=== PATIENT | female | born 1970 | race African-American/Black ===

== ENCOUNTER 2016-05-23 17:33 | Inpatient (IN) | payer MEDICARE, OTHER ==
[~2016-05-23] VITALS: Ht 160 cm; Wt 84.7 kg
[~2016-05-23 17:33] MED LIST: LAMO25 PO; RISP1TAB54 PO
[2016-05-23 18:02] VITALS: BP 128/86; PULSE 93; RESP 20; TEMP 97.7; O2SAT 100
[2016-05-23 18:29] LABS: AMPHETAMINE, URINE NEG (NEG); AUTOMATED NEUTROPHIL # 3.7 TH/MM3 (1.8-7.7); BARBITURATES, URINE NEG (NEG); BASOPHIL % 0.6 % (0.0-2.0); COCAINE, URINE NEG (NEG); EOSINOPHIL # 0.5 TH/MM3 (0-0.4); EOSINOPHIL % 6.2 % (0.0-4.0); HEMATOCRIT 40.9 % (35.0-46.0); HEMO FLAGS DIFF FINAL; LYMPH % 35.1 % (9.0-44.0); LYMPHOCYTE # 2.6 TH/MM3 (1.0-4.8); MEAN CELL VOLUME 90.1 FL (80.0-100.0); MEAN CORPUSCULAR HGB CONC 34.4 % (32.0-36.0); MONO % 7.6 % (0.0-8.0); NEUT % 50.5 % (16.0-70.0); PLATELET COUNT 321 TH/MM3 (150-450); RED BLOOD COUNT 4.54 MIL/MM3 (4.00-5.30); RED CELL DISTRIBUTION WIDTH 13.6 % (11.6-17.2); WHITE BLOOD COUNT 7.3 TH/MM3 (4.0-11.0)
[2016-05-23 18:40] LABS: BLOOD, URINE NEG (NEG); COMMENT (UR) CULT NOT INDICATED; CULTURE IF INDICATED CULT NOT INDICATED; GLUCOSE,URINE NEG (NEG); KETONE, URINE NEG (NEG); MUCUS URINE FEW /lpf (OCC); NITRITE,URINE NEG (NEG); PH, URINE 6.5 (5.0-8.5); SQUAMOUS EPITHELIAL CELL URINE <1 /hpf (0-5); URINE COLOR LIGHT-YELLOW (YELLW/STRAW)
--- NOTE | 2016-05-23 18:43 | PD ---
HPI Chief Complaint: Psychiatric Symptoms Time Seen by Provider: 18:42 Travel History International Travel<30 days: No Contact w/Intl Traveler<30days: No Traveled to known affect area: No History of Present Illness HPI Patient comes in under [place] act by police for making suicidal statements. Patient denies any suicidal or homicidal ideations. Patient reports she is recently had surgery on her left eye and is supposed to be taking eyedrops but is uncertain what the medication is. Patient denies any other medical concerns. Denies any chest pain, shortness of breath, fevers, and abdominal pain, nausea, or vomiting. PFSH Past Medical History Anxiety: Yes Depression: Yes Cancer: No High Cholesterol: No Chest Pain: No Congestive Heart Failure: No Cerebrovascular Accident: No Endocrine: No Genitourinary: No Immune Disorder: No Musculoskeletal: No Neurologic: Yes Psychiatric: Yes (SCHIZOAFFECTIVE) Reproductive: No Respiratory: No Migraines: No ?: Not Social History Alcohol Use: No Tobacco Use: No Substance Use: No Allergies-Medications (Allergen,Severity, Reaction): Coded Allergies: No Known Allergies (Unverified , 02/27/12) Reported Meds & Prescriptions Reported Meds & Active Scripts Active Reported Risperdal M-Tab (Risperidone) 1 Mg Tab 1 Mg PO TID Lamictal (Lamotrigine) 25 Mg Tab 75 Mg PO Q12 Review of Systems Except as stated in HPI: all other systems reviewed are Neg Physical Exam Narrative GENERAL: Well-developed, overly nourished, in no acute distress, and non-ill appearing. SKIN: Warm and dry. HEAD: Atraumatic. Normocephalic. EYES: Pupils equal and round. EOMI. No scleral icterus. No injection or drainage. ENT: No nasal bleeding or discharge. Mucous membranes pink and moist. NECK: Trachea midline. Supple. No nuclear rigidity. CARDIOVASCULAR: Regular rate and rhythm. No murmur appreciated. RESPIRATORY: No accessory muscle use. No respiratory distress. Clear to auscultation. Breath sounds equal bilaterally. MUSCULOSKELETAL: No obvious deformities. No clubbing. No cyanosis. No edema. Full range of motion. NEUROLOGICAL: Awake and alert. No obvious cranial nerve deficits. Motor grossly within normal limits. Normal speech. PSYCHIATRIC: Appropriate mood and affect. Data Data Last Documented VS Vital Signs Date Time Temp Pulse Resp B/P Pulse Ox O2 Delivery O2 Flow Rate FiO2 2/8/17 18:56 96.5 100 20 130/85 96 Room Air Orders Complete Blood Count With Diff (05/23/16 18:04) Comprehensive Metabolic Panel (05/23/16 18:04) Psych Screen (05/23/16 18:04) Drug Screen, Random Urine (05/23/16 18:04) Alcohol (Ethanol) (05/23/16 18:04) Urinalysis - C+S If Indicated (05/23/16 18:07) Potassium Chloride (Kcl) (05/23/16 19:00) Labs Laboratory Tests Test 05/23/16 18:00 White Blood Count 7.3 TH/MM3 Red Blood Count 4.54 MIL/MM3 Hemoglobin 14.1 GM/DL Hematocrit 40.9 % Mean Corpuscular Volume 90.1 FL Mean Corpuscular Hemoglobin 31.0 PG Mean Corpuscular Hemoglobin 34.4 % Concent Red Cell Distribution Width 13.6 % Platelet Count 321 TH/MM3 Mean Platelet Volume 7.9 FL Neutrophils (%) (Auto) 50.5 % Lymphocytes (%) (Auto) 35.1 % Monocytes (%) (Auto) 7.6 % Eosinophils (%) (Auto) 6.2 % Basophils (%) (Auto) 0.6 % Neutrophils # (Auto) 3.7 TH/MM3 Lymphocytes # (Auto) 2.6 TH/MM3 Monocytes # (Auto) 0.6 TH/MM3 Eosinophils # (Auto) 0.5 TH/MM3 Basophils # (Auto) 0.0 TH/MM3 CBC Comment DIFF FINAL Differential Comment Urine Color LIGHT-YELLOW Urine Turbidity CLEAR Urine pH 6.5 Urine Specific [place] 1.007 Urine Protein NEG mg/dL Urine Glucose (UA) NEG mg/dL Urine Ketones NEG mg/dL Urine Occult Blood NEG Urine Nitrite NEG Urine Bilirubin NEG Urine Urobilinogen LESS THAN 2.0 MG/DL Urine Leukocyte Esterase NEG Urine RBC 2 /hpf Urine WBC 1 /hpf Urine Squamous Epithelial <1 /hpf Cells Urine Mucus FEW /lpf Microscopic Urinalysis Comment CULT NOT INDICATED Sodium Level 136 MEQ/L Potassium Level 3.2 MEQ/L Chloride Level 102 MEQ/L Carbon Dioxide Level 23.0 MEQ/L Anion Gap 11 MEQ/L Blood Urea Nitrogen 6 MG/DL Creatinine 0.90 MG/DL Estimat Glomerular Filtration 82 ML/MIN Rate Random Glucose 104 MG/DL Calcium Level 9.2 MG/DL Total Bilirubin 0.3 MG/DL Aspartate Amino Transf 17 U/L (AST/SGOT) Alanine Aminotransferase 20 U/L (ALT/SGPT) Alkaline Phosphatase 84 U/L Total Protein 9.2 GM/DL Albumin 3.6 GM/DL Urine Opiates Screen NEG Urine Barbiturates Screen NEG Urine Amphetamines Screen NEG Urine Benzodiazepines Screen NEG Urine Cocaine Screen NEG Urine Cannabinoids Screen NEG Ethyl Alcohol Level LESS THAN 3 MG/DL MDM Medical Decision Making Medical Screen Exam Complete: Yes Emergency Medical Condition: Yes Differential Diagnosis Homicidal, suicidal, schizophrenic, bipolar, drug-induced mood disorder, alcohol induced mood disorder, Narrative Course Patient was seen and examined. Labs were obtained and reviewed. Potassium was replaced orally. Patient medically cleared for further treatment and evaluation by psych. Final disposition per psych. Diagnosis Primary Impression: Hypokalemia Condition: Stable Juan Antonio Torres May 23, 2016 18:43
[2016-05-23 18:50] LABS: ALT (GPT) 20 U/L (10-53); ANION GAP 11 MEQ/L (5-15); AST (GOT) 17 U/L (15-37); BLOOD UREA NITROGEN 6 MG/DL (7-18); CHLORIDE 102 MEQ/L (98-107); GLOMERULAR FILTRATION RATE 82 ML/MIN (>89); POTASSIUM 3.2 MEQ/L (3.5-5.1); SODIUM (NA) 136 MEQ/L (136-145)
[2016-05-23 18:53] LABS: ALKALINE PHOSPHATASE 84 U/L (45-117); TOTAL BILIRUBIN ADULT 0.3 MG/DL (0.2-1.0)
[2016-05-23 18:56] VITALS: BP 130/85; PULSE 100; RESP 20; TEMP 96.5; O2SAT 96
[2016-05-23] MEDS ORDERED: POTASSIUM CHLORIDE 20 MEQ CONTROLLED RELEASE TAB PO ONE (19:00)
[2016-05-23] MEDS: LORazepam 1 MG TAB PO PRN (19:30)
[2016-05-23] MEDS ORDERED: ACETAMINOPHEN 325 MG TAB PO PRN (19:45)
[2016-05-23] MEDS ORDERED: LORazepam 2 MG/ML VIAL IM PRN ×2 (19:45)
[2016-05-23] MEDS ORDERED: ALUMINUM/MAGNESIUM/SIMETH 30 ML CUP PO PRN (19:45)
[2016-05-23] MEDS ORDERED: MAGNESIUM HYDROXIDE SUSP 30 ML CUP PO PRN (19:45)
[2016-05-23] MEDS ORDERED: LATA0.002 EACH EYE (21:49)
[2016-05-23] MEDS ORDERED: LAMO100 PO ×2 (21:49)
[2016-05-23] MEDS ORDERED: HYDR25TA5 PO (21:49)
[2016-05-23] MEDS ORDERED: RISP0.5T20 PO (21:49)
[2016-05-23] MEDS ORDERED: AMLO5TAB2 PO (21:49)
[2016-05-23] MEDS ORDERED: PRED1SUS LEFT EYE (21:49)
[2016-05-23] MEDS ORDERED: BIRTH CONTROL PILL PO (21:49)
[2016-05-23 22:14] VITALS: BP 124/85; PULSE 90; RESP 18; TEMP 98; O2SAT 100
[2016-05-24 05:29] VITALS: BP 123/69; PULSE 75; RESP 16; TEMP 98
[2016-05-24 09:14] LABS: ANION GAP 8 MEQ/L (5-15); BLOOD UREA NITROGEN 8 MG/DL (7-18); CHLORIDE 100 MEQ/L (98-107); GLOMERULAR FILTRATION RATE 73 ML/MIN (>89); HDL CHOLESTEROL 76.5 MG/DL (40.0-60.0); LDL CHOLESTEROL 90 MG/DL (0-99); POTASSIUM 3.6 MEQ/L (3.5-5.1); SODIUM (NA) 136 MEQ/L (136-145)
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
[2016-05-24 12:12] LABS: HEMOGLOBIN A1b 0.9 %; HEMOGLOBIN Ao 85.4 %; HEMOGLOBIN LA1C 1.9 %; HEMOGLOBIN P3 3.7 %
[2016-05-24] MEDS: CITALOPRAM HYDROBROMIDE 40 MG TAB PO SCH (12:48)
[2016-05-24] MEDS: QUEtiapine FUMARATE 100 MG TAB PO SCH ×2 (12:48→20:29)
[2016-05-24 18:00] VITALS: BP 133/79; PULSE 74; RESP 18; TEMP 98.6; O2SAT 100
[2016-05-25 06:13] VITALS: BP 115/57; PULSE 81; RESP 18; TEMP 98.5; O2SAT 98
[2016-05-25] MEDS: QUEtiapine FUMARATE 100 MG TAB PO SCH ×2 (09:16→20:08)
[2016-05-25] MEDS: CITALOPRAM HYDROBROMIDE 40 MG TAB PO SCH (09:16)
--- NOTE | 2016-05-25 11:01 | HHI.PYPN ---
Subjective Remarks Patient was seen and discussed with the staff editor. Patient claimed that she still has been feeling depressed and missing her mother. She still wants to be with her mom. She occasionally cries. She denied any active auditory or visual hallucinations. She slept okay last night. Denied any side effects from the medication. She is cooperative and participating in all the treatment. Continue with the same treatment Review of Systems Except as stated in HPI: all other systems reviewed are Neg Psychiatric: COMPLAINS OF: Depression Objective Alert: Yes [place]: Person, Place, Situation Mood: Anxious, Depressed Affect: Labile Memory Intact: Recent (mildly impaired) Hallucinations: Other (denied any auditory or visual hallucinations) Delusions: No Delusion Type: Other (no obvious delusional beliefs reported at this time) Suicidal: Ideation (passive suicidal ideation but feels safe in the hospital and promises not to hurt herself) Homicidal: Ideation (denies) Insight/Judgement Limited Vitals/IOs Vital Signs Date Time Temp Pulse Resp B/P Pulse Ox O2 Delivery O2 Flow Rate FiO2 05/25/16 06:13 98.5 81 18 115/57 98 05/23/16 18:56 Room Air Intake and Output 05/24/16 05/24/16 05/25/16 08:00 16:00 00:00 Intake Total 360 ml Balance 360 ml Assessment & Plan Problem List: (1) schizoaffective disorder depressed Assessment & Plan Estimated LOS: days Justification for Cont. Inpt. Monitoring other medication to stabilize her mood Request HC Surrog/Guard Advoc?: No Everardo Nuñez MD May 25, 2016 11:01
[2016-05-25] MEDS: LORazepam 0.5 MG TAB PO PRN (12:53)
[2016-05-25 17:33] VITALS: BP 100/65; PULSE 86; RESP 18; TEMP 98.7; O2SAT 97
[2016-05-26 05:46] VITALS: BP 97/67; PULSE 70; RESP 18; TEMP 98.2; O2SAT 97
[2016-05-26] MEDS: QUEtiapine FUMARATE 100 MG TAB PO SCH ×2 (08:34→20:43)
[2016-05-26] MEDS: CITALOPRAM HYDROBROMIDE 40 MG TAB PO SCH (08:34)
--- NOTE | 2016-05-26 15:06 | HHI.PYPN ---
Subjective Remarks Patient was seen and case discussed with nursing. Patient is pleasant and cooperative with exam. There is mild intellectual delay as evidenced during the interview. Per nursing she was napping this morning and behaving well on the unit. Patient is bright and cheerful during the interview; however, she admits to suicidal ideations last night with thoughts of overdosing on medication. Denies auditory visual hallucinations Objective Alert: Yes [place]: Person, Place, Situation Mood: Anxious, Depressed Affect: Labile Memory Intact: Recent (mildly impaired) Hallucinations: Other (denied any auditory or visual hallucinations) Delusions: No Delusion Type: Other (no obvious delusional beliefs reported at this time) Suicidal: Ideation (passive suicidal ideation but feels safe in the hospital and promises not to hurt herself) Homicidal: Ideation (denies) Insight/Judgement Poor Vitals/IOs Vital Signs Date Time Temp Pulse Resp B/P Pulse Ox O2 Delivery O2 Flow Rate FiO2 05/26/16 05:46 98.2 70 18 97/67 97 05/23/16 18:56 Room Air Assessment & Plan Problem List: (1) schizoaffective disorder depressed Assessment & Plan Continue current treatment plan Justification for Cont. Inpt. Patient will decompensate in a less restrictive setting Request HC Surrog/Guard Advoc?: No Wolfgang Saleh DO May 26, 2016 15:06
[2016-05-26 18:44] VITALS: BP 129/72; PULSE 76; RESP 18; TEMP 98.3; O2SAT 100
[2016-05-27 04:28] VITALS: BP 100/50; PULSE 65; RESP 18; TEMP 98.9; O2SAT 99
[2016-05-27] MEDS: QUEtiapine FUMARATE 100 MG TAB PO SCH ×2 (08:21→20:32)
[2016-05-27] MEDS: CITALOPRAM HYDROBROMIDE 40 MG TAB PO SCH (08:21)
--- NOTE | 2016-05-27 12:15 | HHI.PYPN ---
Subjective Remarks Patient was seen and case discussed with nursing. Patient suicidal ideations have resolved. Says she had a productive conversation with her cousin which cheered her up. Says was depressed last night but "I got over it." Bright and cheerful during the interview. Compliant with medications Objective Alert: Yes [place]: Person, Place, Situation Mood: Anxious, Depressed Affect: Labile Memory Intact: Recent (mildly impaired) Hallucinations: Other (denied any auditory or visual hallucinations) Delusions: No Delusion Type: Other (no obvious delusional beliefs reported at this time) Suicidal: Ideation (denies) Homicidal: Ideation (denies) Insight/Judgement Poor Vitals/IOs Vital Signs Date Time Temp Pulse Resp B/P Pulse Ox O2 Delivery O2 Flow Rate FiO2 05/27/16 04:28 98.9 65 18 100/50 99 05/23/16 18:56 Room Air Assessment & Plan Problem List: (1) schizoaffective disorder depressed Assessment & Plan Continue current treatment plan Justification for Cont. Inpt. Patient will decompensate in a less restrictive setting Request HC Surrog/Guard Advoc?: No Wolfgang Saleh DO May 27, 2016 12:15
[2016-05-27 19:03] VITALS: BP 128/80; PULSE 70; RESP 18; TEMP 98.2; O2SAT 99
[2016-05-28 05:16] VITALS: BP 98/54; PULSE 69; RESP 18; TEMP 98.3; O2SAT 99
[2016-05-28] MEDS: QUEtiapine FUMARATE 100 MG TAB PO SCH (09:04)
[2016-05-28] MEDS: CITALOPRAM HYDROBROMIDE 40 MG TAB PO SCH (09:04)
--- NOTE | 2016-05-28 15:52 | HHI.PYPN ---
Subjective Remarks Patient seen on unit with nurse Mateo, and medical student Vero, patient calm pleasant, denies auditory or visual hallucinations denies suicidality but she does acknowledge and labile explosive temper she says is gotten treatment some problems before in her placements with her family in the past. She denies any prodromal type behaviors with this. For now we will condense the Seroquel to 200 mg at bedtime and Tegretol 100 mg chewable twice a day to dosage at today and check a level on 05/31 Review of Systems Except as stated in HPI: all other systems reviewed are Neg Objective Alert: Yes [place]: Person, Place, Situation Mood: Anxious, Depressed Affect: Labile Memory Intact: Recent (mildly impaired) Hallucinations: Other (denied any auditory or visual hallucinations) Delusions: No Delusion Type: Other (no obvious delusional beliefs reported at this time) Suicidal: Ideation (denies) Homicidal: Ideation (denies) Insight/Judgement Poor Vitals/IOs Vital Signs Date Time Temp Pulse Resp B/P Pulse Ox O2 Delivery O2 Flow Rate FiO2 05/28/16 05:16 98.3 69 18 98/54 99 Assessment & Plan Problem List: (1) Schizoaffective disorder, depressive type ICD Code: F25.1 Assessment & Plan Estimated LOS: days distant patient remains somewhat sad though denying any auditory or visual hallucinations. She has a contraband temper that has made things difficult for her [place] placements. Please see medication adjustments above Justification for Cont. Inpt. At this time patient was significantly decompensated placed in a lower level of care Discharge Planning To be determined Request HC Surrog/Guard Advoc?: No Adis Nunez MD May 28, 2016 15:52
[2016-05-28 18:44] VITALS: BP 121/77; PULSE 77; RESP 18; TEMP 98.5; O2SAT 98
[2016-05-28] MEDS: QUEtiapine FUMARATE 200 MG TAB PO SCH (20:09)
[2016-05-29 05:36] VITALS: BP 107/64; PULSE 65; RESP 16; TEMP 98
[2016-05-29] MEDS: CITALOPRAM HYDROBROMIDE 40 MG TAB PO SCH (08:47)
--- NOTE | 2016-05-29 13:32 | HHI.PYPN ---
Subjective Remarks Patient seen in [place] nurse Mateo, chart review, patient calm and pleasant with me continues to verify the past history of explosive temper and poor impulse control. She been compliant with medications including the addition of the Tegretol. For now continue treatment no change Review of Systems Except as stated in HPI: all other systems reviewed are Neg Objective Alert: Yes [place]: Person, Place, Situation Mood: Anxious, Depressed Affect: Labile Memory Intact: Recent (mildly impaired) Hallucinations: Other (denied any auditory or visual hallucinations) Delusions: No Delusion Type: Other (no obvious delusional beliefs reported at this time) Suicidal: Ideation (denies) Homicidal: Ideation (denies) Insight/Judgement Poor Vitals/IOs Vital Signs Date Time Temp Pulse Resp B/P Pulse Ox O2 Delivery O2 Flow Rate FiO2 05/29/16 05:36 98.0 65 16 107/64 05/28/16 18:44 98 Assessment & Plan Problem List: (1) Schizoaffective disorder, depressive type ICD Code: F25.1 Assessment & Plan Estimated LOS: days patient continues calm focused with me compliant with medications. For now continue treatment Justification for Cont. Inpt. At this time patient will decompensate placed in a lower level of care Discharge Planning To be determined Request HC Surrog/Guard Advoc?: No Adis Nunez MD May 29, 2016 13:32
[2016-05-29] MEDS: QUEtiapine FUMARATE 200 MG TAB PO SCH (20:14)
[2016-05-30 06:16] VITALS: BP 108/67; PULSE 77; RESP 18; TEMP 97.9; O2SAT 100
[2016-05-30] MEDS: CITALOPRAM HYDROBROMIDE 40 MG TAB PO SCH (08:55)
--- NOTE | 2016-05-30 12:07 | HHI.PYPN ---
Subjective Remarks Patient seen in [place] with nurse Brea, patient calm pleasant with me while until extremely discharge. Responses and behavior continued childlike. When I discussed with her medications and her blood tests for tomorrow she was agreeable to that. For now continue treatment no change Review of Systems Except as stated in HPI: all other systems reviewed are Neg Objective Alert: Yes [place]: Person, Place, Situation Mood: Anxious, Depressed Affect: Labile Memory Intact: Recent (mildly impaired) Hallucinations: Other (denied any auditory or visual hallucinations) Delusions: No Delusion Type: Other (no obvious delusional beliefs reported at this time) Suicidal: Ideation (denies) Homicidal: Ideation (denies) Insight/Judgement Very poor Vitals/IOs Vital Signs Date Time Temp Pulse Resp B/P Pulse Ox O2 Delivery O2 Flow Rate FiO2 05/30/16 06:16 97.9 77 18 108/67 100 Assessment & Plan Problem List: (1) Schizoaffective disorder, depressive type ICD Code: F25.1 Assessment & Plan Estimated LOS: days patient calm cooperative though cognitive issues continue to be quite apparent. Awaiting Tegretol blood level tomorrow Justification for Cont. Inpt. At this time patient decompensated placed in the lower level of care Discharge Planning To be determined Request HC Surrog/Guard Advoc?: No Adis Nunez MD May 30, 2016 12:07
[2016-05-30 18:50] VITALS: BP 147/86; PULSE 90; RESP 18; TEMP 98.2; O2SAT 100
[2016-05-30] MEDS: QUEtiapine FUMARATE 200 MG TAB PO SCH (21:07)
[2016-05-31 05:05] VITALS: BP 111/65; PULSE 69; RESP 18; TEMP 97.2; O2SAT 98
[2016-05-31] MEDS: CITALOPRAM HYDROBROMIDE 40 MG TAB PO SCH (09:05)
--- NOTE | 2016-05-31 09:40 | HHI.PYPN ---
Subjective Remarks Patient seen in [place] with nurse Jsoh, chart review, Tegretol level drawn this a.m. came back at 5.3 on 100 mg twice a day. Will increase dose to 100 mg a.m. 20 mg at bedtime and check blood level on 06/03. Otherwise patient calm with occasional childlike responses now denying suicidality denying voices. Continues to want return to senior living as soon as possible. For now continue treatment Review of Systems Except as stated in HPI: all other systems reviewed are Neg Objective Alert: Yes [place]: Person, Place, Situation Mood: Anxious, Depressed Affect: Labile Memory Intact: Recent (mildly impaired) Hallucinations: Other (denied any auditory or visual hallucinations) Delusions: No Delusion Type: Other (no obvious delusional beliefs reported at this time) Suicidal: Ideation (denies) Homicidal: Ideation (denies) Insight/Judgement Very poor Labs Test 05/31/16 07:02 Carbamazepine (Tegretol) Level 5.3 MCG/ML Vitals/IOs Vital Signs Date Time Temp Pulse Resp B/P Pulse Ox O2 Delivery O2 Flow Rate FiO2 05/31/16 05:05 97.2 69 18 111/65 98 Assessment & Plan Problem List: (1) Schizoaffective disorder, depressive type ICD Code: F25.1 Assessment & Plan Estimated LOS: days patient continues calm somewhat sad though showing little insight into her behaviors at home that led to this hospitalization. Patient compliant medications. She medication adjustment above Justification for Cont. Inpt. At this time patient will decompensate then placed in a lower level of care Discharge Planning To be determined Request HC Surrog/Guard Advoc?: No Adis Nunez MD May 31, 2016 09:40
[2016-05-31 18:22] VITALS: BP 156/97; PULSE 69; RESP 18; TEMP 98.6; O2SAT 98
[2016-05-31] MEDS: QUEtiapine FUMARATE 200 MG TAB PO SCH (21:09)
[2016-06-01 05:03] VITALS: BP 132/68; PULSE 61; RESP 18; TEMP 98.3; O2SAT 99
--- NOTE | 2016-06-01 09:31 | PD.PN.STU ---
Subjective Remarks Patient on day 9 of hospitalization for behavioral problems with primary dx depression, seen in day room by YARED Vero. She states she has been doing well overall and wishes to go home. She talks about her cousin and how they have spoken to one another over the phone, and her cousin has seemed to have forgiven her for the event that happened and wishes for her to get better. She has been sleeping well, eating well, and denies taking daytime naps. She asks when she can go home as she feels that she is ready. Denies suicidal/homicidal thoughts, visual or auditory hallucinations, phobias, delusions. Objective Vitals Vital Signs Date Time Temp Pulse Resp B/P Pulse Ox O2 Delivery O2 Flow Rate FiO2 06/01/16 05:03 98.3 61 18 132/68 99 05/31/16 18:22 98.6 69 18 156/97 98 Objective Remarks Patient is a 45 yo AA female who was dressed appropriately in her own clothes, fair hygiene, alert and oriented x3. She describes her mood as happy although she does wish to go home, her affect is appropriate for her mood and congruent with thought content. She speaks often of her cousin whom she misses. Her speech has normal rate and flow with appropriate volume and increased range. She has logical thought patterns, ST/LT memory is intact and she appears to have limited insight and judgment. Alert: Yes [place]: Person, Place, Situation Mood: Euthymic Affect: Pleasant Memory Intact: LT/ST (mildly impaired) Hallucinations: Other (denied any auditory or visual hallucinations) Delusions: No Delusion Type: Other (no obvious delusional beliefs reported at this time) Suicidal: Ideation (denies) Homicidal: Ideation (denies) Insight/Judgement: Limited A/P Assessment and Plan Impression: 45 yo AA female with depression and comorbid behavioral problems and explosive temperament. Problem list: Depression, behavioral problems LOS: Estimated d/c on Saturday Justification: Patient has been compliant with medication and has had no behavior problems. She has improved since admission and will likely be prepared for discharge after the weekend. Discharge Planning To be determined Vero Harp M3 Jun 01, 2016 09:31
[2016-06-01] MEDS: CITALOPRAM HYDROBROMIDE 40 MG TAB PO SCH (09:53)
--- NOTE | 2016-06-01 10:36 | HHI.PYPN ---
Subjective Remarks Patient seen in the day room with medical student Vero, chart reviewed, patient calm cooperative continues somewhat childlike in her responses. Has been compliant with the medications. Does denies suicidality at this time, though still his little insight into the explosiveness of her behavior and her long term. Was adjustment of the Tegretol dosage yesterday will be repeating Tegretol blood level on 06/03 consider discharge after that patient behavior remains okay Review of Systems Except as stated in HPI: all other systems reviewed are Neg Objective Alert: Yes [place]: Person, Place, Situation Mood: Anxious, Depressed Affect: Labile Memory Intact: Recent (mildly impaired) Hallucinations: Other (denied any auditory or visual hallucinations) Delusions: No Delusion Type: Other (no obvious delusional beliefs reported at this time) Suicidal: Ideation (denies) Homicidal: Ideation (denies) Insight/Judgement Very poor Vitals/IOs Vital Signs Date Time Temp Pulse Resp B/P Pulse Ox O2 Delivery O2 Flow Rate FiO2 06/01/16 05:03 98.3 61 18 132/68 99 Assessment & Plan Problem List: (1) Schizoaffective disorder, depressive type ICD Code: F25.1 Assessment & Plan Estimated LOS: days patient's behavior psychosis is softening, mood appears to be stabilizing. Compliant medications. We'll be rechecking Tegretol blood level on 06/03 consider discharge after Justification for Cont. Inpt. At this time patient will decompensate then placed in a lower level of care Discharge Planning To be determined Request HC Surrog/Guard Advoc?: No Adis Nunez MD Jun 01, 2016 10:36
[2016-06-01 18:45] VITALS: BP 162/95; PULSE 87; RESP 18; TEMP 98.5; O2SAT 97
[2016-06-01] MEDS: QUEtiapine FUMARATE 200 MG TAB PO SCH (21:08)
[2016-06-02 05:49] VITALS: BP 128/63; PULSE 75; RESP 16; TEMP 96.8; O2SAT 97
[2016-06-02] MEDS: CITALOPRAM HYDROBROMIDE 40 MG TAB PO SCH (10:00)
--- NOTE | 2016-06-02 15:13 | HHI.PYPN ---
Subjective Remarks Pt seen and discussed with staff. Pt reports that she is feeling less depressed today, but continues to have spells of tearfulness. She is compliant with medications and denies side effects. She continues to struggle with grief over of mother. She denies SI/HI today. Objective Alert: Yes [place]: Person, Place, Date, Situation Mood: Anxious, Depressed Affect: Labile (mild) Memory Intact: Immediate, Recent, Remote Hallucinations: Other (denied any auditory or visual hallucinations) Delusions: No Delusion Type: Other (no obvious delusional beliefs reported at this time) Suicidal: Ideation (denies) Homicidal: Ideation (denies) Insight/Judgement poor Vitals/IOs Vital Signs Date Time Temp Pulse Resp B/P Pulse Ox O2 Delivery O2 Flow Rate FiO2 06/02/16 05:49 96.8 75 16 128/63 97 Intake and Output 06/01/16 06/01/16 06/02/16 08:00 16:00 00:00 Intake Total 480 ml Balance 480 ml Assessment & Plan Problem List: (1) Schizoaffective disorder, depressive type ICD Code: F25.1 Assessment & Plan Continue current tx plan. Estimated LOS: days Justification for Cont. Inpt. monitoring for impairments in safety Request HC Surrog/Guard Advoc?: Elyse Strickland MD Jun 02, 2016 15:13
[2016-06-02] MEDS: LORazepam 0.5 MG TAB PO PRN (17:37)
[2016-06-02 18:46] VITALS: BP 168/102; PULSE 98; RESP 16; TEMP 97.9; O2SAT 100
[2016-06-02 20:16] VITALS: BP 155/89; PULSE 96; RESP 16; TEMP 97.9; O2SAT 100
[2016-06-02] MEDS: QUEtiapine FUMARATE 200 MG TAB PO SCH (21:06)
[2016-06-02] MEDS: LORazepam 1 MG TAB PO PRN (21:06)
[2016-06-03 05:26] VITALS: BP 124/73; PULSE 70; RESP 16; TEMP 98.1
[2016-06-03] MEDS: CITALOPRAM HYDROBROMIDE 40 MG TAB PO SCH (08:45)
[2016-06-03] MEDS: LORazepam 1 MG TAB PO PRN (12:28)
--- NOTE | 2016-06-03 16:00 | HHI.PYPN ---
Subjective Remarks Pt seen and discussed with staff.Pt was agitated last night and anxious. Staff report that anxiety has been under better control today. Pt states that she is feeling better today after speaking with cousin who assured her that she wants her to come home. No SI/HI. Objective Alert: Yes [place]: Person, Place, Date, Situation Mood: Anxious, Depressed Affect: Labile (mild) Memory Intact: Immediate, Recent, Remote Hallucinations: Other (denied any auditory or visual hallucinations) Delusions: No Delusion Type: Other (no obvious delusional beliefs reported at this time) Suicidal: Ideation (denies) Homicidal: Ideation (denies) Insight/Judgement limited Labs Test 06/03/16 06:38 Carbamazepine (Tegretol) Level 9.1 MCG/ML Vitals/IOs Vital Signs Date Time Temp Pulse Resp B/P Pulse Ox O2 Delivery O2 Flow Rate FiO2 06/03/16 05:26 98.1 70 16 124/73 06/02/16 20:16 100 Assessment & Plan Problem List: (1) Schizoaffective disorder, depressive type ICD Code: F25.1 Assessment & Plan Continue current tx plan. Estimated LOS: days Justification for Cont. Inpt. risk of decompensation Request HC Surrog/Guard Advoc?: No Elyse Cueva MD Jun 03, 2016 16:00
[2016-06-03 18:24] VITALS: BP 120/79; PULSE 88; RESP 18; TEMP 98.6; O2SAT 99
[2016-06-03] MEDS: QUEtiapine FUMARATE 200 MG TAB PO SCH (20:26)
[2016-06-04 04:52] VITALS: BP 111/63; PULSE 75; RESP 18; TEMP 98; O2SAT 100
[2016-06-04] MEDS: CITALOPRAM HYDROBROMIDE 40 MG TAB PO SCH (08:22)
[2016-06-04] MEDS ORDERED: QUET1TAB9 PO (13:11)
[2016-06-04] MEDS ORDERED: CARB100C CHEW (13:11)
[2016-06-04] MEDS ORDERED: CELE40TA PO (13:11)
--- NOTE | 2016-06-04 13:21 | HHI.DS ---
Psychiatry Discharge Summary Inpatient Psychiatric care?: Yes Advance Directive: No Reason Not Provided: NOT INTERESTED Mental Health AdvanceDirective: No Health Care Proxy: No Admission Admission Date May 23, 2016 at 20:23 Admission Diagnosis: (1) Schizoaffective disorder, depressive type ICD Code: F25.1 Brief History This is a 45-year-old female who was admitted under [place] act because she wanted to kill herself she claimed that she was hating herself and was beating her up or was going to not eat and going to starvation and . She claimed that they recently her mother and since that time she has been feeling more depressed and lonely she has been taken care of by her cousin she got into some kind of argument with her cousin. Patient also reported that she has been seeing a psychiatrist in taking Risperdal and Lamictal. She denied any suicidal plan. She is willing to sign voluntary and the hospital feels safe in the hospital. No behavior or management problem reported. She has been having some difficulty with her sleep or appetite. She denied any active auditory or visual hallucinations but has been feeling paranoid and guarded. In the past she has attempted suicide in past. Tobacco Use In Past 30 Days: No Tobacco Past 30 Days Alcohol Use: Never Hospital Course Patient showed good self-control from the day of admission, she was calm pleasant with me though quite childlike so responses though did acknowledge her chart refusing temper and lability. Showing some mild but appropriate insight. There been no significant behavioral problems on the unit she is tolerating to the initiation of the Tegretol medication without problem Depakote level drawn on 06/03 is 9.1. Patient discussed with treatment team, and seen on unit. Patient is calm cooperative does wish discharge today. She denies suicidality homicidality voices or visions has had a good weekend showing no destructive behavior. Thus patient will be discharged today to her family [facility] Blood Pressure 111 / 63 Vital Signs Date Time Temp Pulse Resp B/P Pulse Ox O2 Delivery O2 Flow Rate FiO2 06/04/16 04:52 98.0 75 18 111/63 100 Urine toxicology negative, Tegretol level on 06/03 is 9.1 Summary of Procedures None done Pending results at discharge: No Medications # of Antipsychotic meds at D/C: 1 Approp Antipsych med options 1 - Minimum of three failed multiple trials of monotherapy. 2 - Documented plan to taper to monotherapy due to previous use of multiple meds OR cross-taper in progress at D/C. 3 - Documentation of augmentation of Clozapine. 4 - Justification other than those listed in allowable values 1-3, document here : Discharge Discharge Date: Jun 04, 2016 Discharge Diagnosis: (1) Schizoaffective disorder, depressive type Diagnosis: Principal ICD Code: F25.1 Mental Status Exam at Disch Alert oriented female she is calm cooperative with me. Though childlike with her behaviors. She has normal active, mood is euthymic, affect show slight increase range and intensity. Then auditory visual hallucinations noted no delusions noted insight and judgment is poor cognition show some deficits related to her cognitive disabilities. Pt Condition on Discharge: Stable Discharge Disposition: Discharge Home Discharge Instructions Diet Instructions: As Tolerated, No Restrictions Activities you can perform: Regular-No Restrictions Scheduled Appointment: Dr. Aaron Wilkins. Appointment Date: Jun 06, 2016 Appointment Time: 9:00am Discharge Time > 30 minutes Discharge/Advance Care Plan Health Problems: (1) Schizoaffective disorder, depressive type Goals to promote your health * To prevent worsening of your condition and complications * To maintain your health at the optimal level Directions to meet your goals Take your medications as prescribed Follow your dietary instruction Follow activity as directed Keep your appointments as scheduled Take your immunizations and boosters as scheduled If your symptoms worsen call your PCP, if no PCP go to Urgent Care Center or Emergency Room For 05/11 questions related to your inpatient stay or results of tests pending at discharge, please contact Dr. Adis Nunez at Smoking is Dangerous to Your Health. Avoid second hand smoking Adis Nunez MD Jun 04, 2016 13:21
== END 2016-06-04 14:30 | disposition home or self-care (01) | DRG 885 ==
LOC: NEPJ 17:33 → NEDA 20:23 → H260 21:44
PROVIDERS: ADMIT Psychiatry & Neurology Psychiatry; ATTEND Psychiatry & Neurology Psychiatry
DX: F25.1 Schizoaffective disorder, depressive type (principal); E87.6 Hypokalemia
CPT/HCPCS: 80048; 80053; 80061; 80156; 80307; 80320; 81001; 83036; 85025; 99284

== ENCOUNTER 2016-09-01 22:01 | Inpatient (IN) | payer MEDICARE, OTHER ==
[~2016-09-01] VITALS: Ht 165.1 cm; Wt 82.6 kg
[~2016-09-01 22:01] MED LIST changes: +AMLO5TAB2 PO; +BIRTH CONTROL PILL PO; +CARB100C CHEW; +CELE40TA PO; +HYDR25TA5 PO; +LAMO100 PO; -LAMO25 PO; +LATA0.002 EACH EYE; +PRED1SUS LEFT EYE; +QUET1TAB9 PO; +RISP0.5T20 PO; -RISP1TAB54 PO
[2016-09-01 22:11] VITALS: BP 127/82; PULSE 68; RESP 17; TEMP 98.7; O2SAT 97
[2016-09-01] MEDS ORDERED: PREVTAB PO (22:57)
[2016-09-01] MEDS ORDERED: CARB300C7 PO (22:57)
[2016-09-01] MEDS ORDERED: QUET1TAB8 PO (22:57)
[2016-09-01 23:44] LABS: BLOOD, URINE NEG (NEG); COMMENT (UR) CULT NOT INDICATED; CULTURE IF INDICATED CULT NOT INDICATED; GLUCOSE,URINE NEG (NEG); KETONE, URINE NEG (NEG); MUCUS URINE FEW /lpf (OCC); NITRITE,URINE NEG (NEG); PH, URINE 6.5 (5.0-8.5); SQUAMOUS EPITHELIAL CELL URINE 2 /hpf (0-5); URINE COLOR YELLOW (YELLW/STRAW)
[2016-09-01 23:51] LABS: AUTOMATED NEUTROPHIL # 2.6 TH/MM3 (1.8-7.7); BASOPHIL % 0.4 % (0.0-2.0); EOSINOPHIL # 0.1 TH/MM3 (0-0.4); EOSINOPHIL % 1.9 % (0.0-4.0); LYMPH % 41.8 % (9.0-44.0); LYMPHOCYTE # 2.5 TH/MM3 (1.0-4.8); MEAN CELL VOLUME 92.4 FL (80.0-100.0); MEAN CORPUSCULAR HEMOGLOBIN 30.7 PG (27.0-34.0); MEAN CORPUSCULAR HGB CONC 33.2 % (32.0-36.0); MONO % 11.2 % (0.0-8.0); NEUT % 44.7 % (16.0-70.0); PLATELET COUNT 28 TH/MM3 (150-450); RED CELL DISTRIBUTION WIDTH 14.4 % (11.6-17.2); WHITE BLOOD COUNT 5.9 TH/MM3 (4.0-11.0)
[2016-09-01 23:54] LABS: AMPHETAMINE, URINE NEG (NEG); BARBITURATES, URINE NEG (NEG); COCAINE, URINE NEG (NEG)
[2016-09-02 00:08] LABS: ANION GAP 9 MEQ/L (5-15); BICARBONATE 29.3 MEQ/L (21.0-32.0); BLOOD UREA NITROGEN 12 MG/DL (7-18); CHLORIDE 101 MEQ/L (98-107); GLOMERULAR FILTRATION RATE 104 ML/MIN (>89); POTASSIUM 3.7 MEQ/L (3.5-5.1); SODIUM (NA) 139 MEQ/L (136-145)
[2016-09-02 00:23] LABS: HEMO FLAGS AUTO DIFF; PLATELET ESTIMATE SMEAR LOW (NORMAL); PLATELET MORPHOLOGY NORMAL (NORMAL); SCAN/DIFF AUTO DIFF CONFIRMED
--- NOTE | 2016-09-02 01:15 | PD ---
HPI Chief Complaint: Psychiatric Symptoms Time Seen by Provider: 01:14 Travel History International Travel<30 days: No Contact w/Intl Traveler<30days: No Traveled to known affect area: No History of Present Illness HPI 45 year-old female history schizoaffective disorder and hypertension presents to the emergency department under [place] act for psychiatric evaluation. Patient states that she was upset this evening and she refused to take her medication. This resulted in an argument and the patient became aggressive and inconsolable. Patient states that at times she does want to hurt herself. She has history of striking herself in the face several times. Patient denies any other needs at this time. PFSH Past Medical History Bipolar Disorder: Yes Anxiety: Yes Depression: Yes Cancer: No High Cholesterol: No Chest Pain: No Congestive Heart Failure: No Cerebrovascular Accident: No Diabetes: No Patient Takes Glucophage: No Diminished Hearing: No Endocrine: No Genitourinary: No Headaches: No Hypertension: Yes Immune Disorder: No Musculoskeletal: No Neurologic: Yes Psychiatric: Yes Reproductive: No Respiratory: No Migraines: No Schizophrenia: Yes (SCHIZOAFFECTIVE D/O) Tetanus Vaccination: < 5 Years Influenza Vaccination: No ?: Unknown Past Surgical History Eye Surgery: Yes (LEFT, CATARACT, RETINAL, SILOCONE IMPLANT) Other Surgery: No Social History Alcohol Use: No Tobacco Use: No Substance Use: No Allergies-Medications (Allergen,Severity, Reaction): Coded Allergies: No Known Allergies (Unverified , 09/01/16) Reported Meds & Prescriptions Reported Meds & Active Scripts Active Celexa (Citalopram Hydrobromide) 40 Mg Tab 40 Mg PO DAILY Reported Previfem (Norgestimate-Ethinyl Estradiol) 0.25-35 mg-Mcg Tab 1 Tab PO DAILY Quetiapine (Quetiapine Fumarate) 100 Mg Tab 150 Mg PO HS Carbamazepine ER 12 HR (Carbamazepine) 300 Mg Cap 300 Mg PO Q12HR [ Control Pill] 1 Tab PO DAILY Amlodipine (Amlodipine Besylate) 5 Mg Tab 5 Mg PO DAILY Hydrochlorothiazide 25 Mg Tab 25 Mg PO DAILY Review of Systems Except as stated in HPI: all other systems reviewed are Neg Physical Exam Narrative GENERAL: Well nourished, developmentally delayed patient, ambulatory and in no acute distress. SKIN: Focused skin assessment warm/dry. HEAD: Atraumatic. Normocephalic. EYES: Pupils equal and round. No scleral icterus. No injection or drainage. ENT: No nasal bleeding or discharge. Mucous membranes pink and moist. NECK: Trachea midline. No JVD. CARDIOVASCULAR: Regular rate and rhythm. No murmur appreciated. RESPIRATORY: No accessory muscle use. Clear to auscultation. Breath sounds equal bilaterally. GASTROINTESTINAL: Abdomen soft, non-tender, nondistended. Hepatic and splenic margins not palpable. MUSCULOSKELETAL: No obvious deformities. No clubbing. No cyanosis. No edema. NEUROLOGICAL: Awake and alert. No obvious cranial nerve deficits. Motor grossly within normal limits. Normal speech. Data Data Last Documented VS Vital Signs Date Time Temp Pulse Resp B/P Pulse Ox O2 Delivery O2 Flow Rate FiO2 09/02/16 02:29 77 18 122/76 09/01/16 22:11 98.7 97 Orders Complete Blood Count With Diff (09/01/16 23:00) Basic Metabolic Panel (Bmp) (09/01/16 23:00) Urinalysis - C+S If Indicated (09/01/16 23:00) Carbamazepine (Tegretol) (09/01/16 23:00) Psych Screen (09/01/16 23:00) Drug Screen, Random Urine (09/01/16 23:00) Alcohol (Ethanol) (09/01/16 23:00) Consult Hematology (09/02/16 ) (Hub Use Only)Inp Phy Cons/Ref (09/02/16 ) Admit Order (Ed Use Only) (09/02/16 02:36) Vital Signs (Adult) SULY.Q12H.E (09/02/16 02:36) Activity Oob Ad [place] (09/02/16 02:36) Level Of Observation (Psych) (09/02/16 02:36) Diet Regular Basic (09/02/16 Breakfast) Basic Metabolic Panel (Bmp) (09/03/16 06:00) Lipid Profile (09/03/16 06:00) Hemoglobin (Hgb) A1c (09/03/16 06:00) Labs Laboratory Tests Test 09/01/16 23:15 Urine Opiates Screen NEG Urine Barbiturates Screen NEG Urine Amphetamines Screen NEG Urine Benzodiazepines Screen NEG Urine Cocaine Screen NEG Urine Cannabinoids Screen NEG White Blood Count 5.9 TH/MM3 Red Blood Count 3.90 MIL/MM3 Hemoglobin 11.9 GM/DL Hematocrit 36.0 % Mean Corpuscular Volume 92.4 FL Mean Corpuscular Hemoglobin 30.7 PG Mean Corpuscular Hemoglobin 33.2 % Concent Red Cell Distribution Width 14.4 % Platelet Count 28 TH/MM3 Mean Platelet Volume 8.5 FL Neutrophils (%) (Auto) 44.7 % Lymphocytes (%) (Auto) 41.8 % Monocytes (%) (Auto) 11.2 % Eosinophils (%) (Auto) 1.9 % Basophils (%) (Auto) 0.4 % Neutrophils # (Auto) 2.6 TH/MM3 Lymphocytes # (Auto) 2.5 TH/MM3 Monocytes # (Auto) 0.7 TH/MM3 Eosinophils # (Auto) 0.1 TH/MM3 Basophils # (Auto) 0.0 TH/MM3 CBC Comment AUTO DIFF Differential Comment AUTO DIFF CONFIRMED Platelet Estimate LOW Platelet Morphology Comment NORMAL Urine Color YELLOW Urine Turbidity CLEAR Urine pH 6.5 Urine Specific [place] 1.026 Urine Protein TRACE mg/dL Urine Glucose (UA) NEG mg/dL Urine Ketones NEG mg/dL Urine Occult Blood NEG Urine Nitrite NEG Urine Bilirubin NEG Urine Urobilinogen 2.0 MG/DL Urine Leukocyte Esterase NEG Urine WBC 1 /hpf Urine Squamous Epithelial 2 /hpf Cells Urine Mucus FEW /lpf Microscopic Urinalysis Comment CULT NOT INDICATED Sodium Level 139 MEQ/L Potassium Level 3.7 MEQ/L Chloride Level 101 MEQ/L Carbon Dioxide Level 29.3 MEQ/L Anion Gap 9 MEQ/L Blood Urea Nitrogen 12 MG/DL Creatinine 0.73 MG/DL Estimat Glomerular Filtration 104 ML/MIN Rate Random Glucose 97 MG/DL Calcium Level 8.8 MG/DL Carbamazepine (Tegretol) Level 8.6 MCG/ML Ethyl Alcohol Level LESS THAN 3 MG/DL MDM Medical Decision Making Medical Screen Exam Complete: Yes Emergency Medical Condition: Yes Medical Record Reviewed: Yes Differential Diagnosis Mood disorder versus personality disorder versus adjustment reaction disorder Narrative Course 45 year-old female presents to the emergency department under a Quez[place] act for psychiatric evaluation. Patient appears without distress. On CBC, patient's platelets have decreased tremendously. They were 321 in May of this year and now are 28. Patient has no signs of bleeding. No gingival bleeding, no hematoma, no rash. I discussed the patient my attending physician who agrees that further evaluation of this is warranted however not emergent if the patient is not manic. Patient will be admitted to the inpatient psychiatric unit. A consult hematology has been made. Mental health screening discussed with the patient. Psychiatric screen ordered. Diagnosis Primary Impression: schizoaffective disorder depressed Additional Impression: Thrombocytopenia Condition: Stable Lori Thompson September 02, 2016 01:14
[2016-09-02 02:29] VITALS: BP 122/76; PULSE 77; RESP 18
[2016-09-02 03:38] VITALS: BP 134/63; PULSE 80; RESP 18; TEMP 97.2; O2SAT 98
[2016-09-02] MEDS ORDERED: ALUMINUM/MAGNESIUM/SIMETH 30 ML CUP PO PRN (04:15)
[2016-09-02] MEDS ORDERED: MAGNESIUM HYDROXIDE SUSP 30 ML CUP PO PRN (04:15)
[2016-09-02] MEDS ORDERED: diphenhydrAMINE HCL 50 MG/ML VIAL - HS PRN IM (04:15)
[2016-09-02] MEDS ORDERED: LORazepam 1 MG TAB PO PRN (04:15)
[2016-09-02] MEDS ORDERED: LORazepam 2 MG/ML VIAL IM PRN (04:15)
[2016-09-02] MEDS ORDERED: ACETAMINOPHEN 325 MG TAB PO PRN (04:15)
[2016-09-02] MEDS: amLODIPine BESYLATE 5 MG TAB PO SCH ×2 (08:42→15:00)
[2016-09-02] MEDS ORDERED: HYDROCHLOROTHIAZIDE 25 MG TAB PO SCH (09:00)
[2016-09-02] MEDS ORDERED: CARBAMAZEPINE 300 MG PO SCH (15:00)
--- NOTE | 2016-09-02 15:06 | HHI.HP ---
Provisional Diagnosis Admission Date September 02, 2016 at 02:45 [place] I. Schizoaffective disorder, impulse control disorder, intellectual disability Certification of Person's Competence To Provide Express and Informed Consent I have personally examined Carmen Malik , a person being served at [facility] on, September 02, 2016 14:58. Express and informed consent means consent voluntarily given in writing, by a competent person, after sufficient explanation and disclosure of the subject matter involved to enable the person to make a knowing and willful decision without any element of force, fraud, deceit, duress, or other form of constraint or coercion. This person is 18 years of age or older, is not now known to be incompetent to consent to treatment with a guardian advocate, and does not have a health care surrogate or proxy currently making medical treatment decisions. I have found this person to be one of the following: [] Competent to provide express and informed consent, as defined above, for voluntary admission to this facility and is competent to provide express and informed consent for treatment. He/she has the consistent capacity to make well reasoned, willful, and knowing decisions concerning his or her medical or mental health treatment. The person fully and consistently understands the purpose of the admission for examination/placement and is fully capable of personally exercising all rights assured under [place] [] Incompetent to provide express and informed consent to voluntary admission, and this is incompetent to provide express and informed consent to treatment. The person must be transferred to involuntary status and a petition for a guardian advocate filed with the Circuit Court. [X] Refusing to provide express and informed consent to voluntary admission but is competent to provide express and informed consent for treatment. The person must be discharged or transferred to involuntary status. Form shall be completed within 24 hours of a person's arrival at the receiving facility and filed in the clinical record of each person: 1. Admitted on a voluntary basis 2. Permitted to provide express and informed consent to his/her own treatment 3. Allowed to transfer from involuntary to voluntary status 4. Prior to permitting a person to consent to his or her own treatment after having been previously found incompetent to consent to treatment. History of Present Illness Capacity: Has Capacity HPI The patient is a 45 year-old woman, well known by this service , with history schizoaffective disorder, intellectual disability, impulse control disorder, multiple psychiatric hospitalizations, last hospitalization was here at [place] in May 2016, document patient was reviewed, she is on Celexa 20 mg, quetiapine 150 mg's, Amoxapine 200 mg, medical history of hypertension, who presents to the emergency department under [place] act for psychiatric evaluation due to aggressive behavior with her family. On psychiatric evaluation today patient is at the beginning, cooperative, but after a couple of minutes becomes very labile, crying inconsolably, stating that her mother doesn't want to forgive her, childish-like, difficult to redirect. She says that she has been hearing voices telling her to do bad things "but I want to do bad things, I want to follow might voices". She denies suicidal or homicidal ideation, she denies visual and auditory hallucinations. He is oriented 3, no delusional, no paranoid, however very concrete and perseverant. Review of Systems Constitutional: DENIES: Diaphoretic episodes, Fatigue, Fever, Weight gain, Weight loss, Chills, Dizziness, Change in appetite, Night Sweats Endocrine: DENIES: Abnorml menstrual pattern, Heat/cold intolerance, Polydipsia , Polyuria, Polyphagia Eyes: DENIES: Blurred vision, Diplopia, Eye inflammation, Eye pain, Vision loss , Photosensitivity, Double Vision Ears, nose, mouth, throat: DENIES: Tinnitus, Hearing loss, Vertigo, Nasal discharge, Oral lesions, Throat pain, Hoarseness, Ear Pain, Running Nose, Epistaxis, Sinus Pain, Toothache, Odynophagia Respiratory: DENIES: Apneas, Cough, Snoring, Wheezing, Hemoptysis, Sputum production, Shortness of breath Cardiovascular: DENIES: Chest pain, Palpitations, Syncope, Dyspnea on Exertion , PND, Lower Extremity Edema, Orthopnea, Claudication Gastrointestinal: DENIES: Abdominal pain, Black stools, Bloody stools, Constipation, Diarrhea, Nausea, Vomiting, Difficulty Swallowing, Anorexia Genitourinary: DENIES: Abnormal vaginal bleeding, Dysmenorrhea, Dyspareunia, Sexual dysfunction, Urinary frequency, Urinary incontinence, Urgency, Hematuria , Dysuria, Nocturia, Vaginal discharge Hematologic/lymphatic: DENIES: Bruising, Lymphadenopathy Neurologic: DENIES: Abnormal gait, Headache, Localized weakness, Paresthesias, Seizures, Speech Problems, Tremor, Poor Balance Psychiatric: COMPLAINS OF: Mood changes, Hallucinations, DENIES: Anxiety, Confusion, Depression, Agitation, Suicidal Ideation, Homicidal Ideation, Delusions Substance Abuse History Drugs/Alcohol past 12 months Patient denies substance abuse and alcohol abuse Past Family Social History Coded Allergies: No Known Allergies (Unverified , 09/01/16) Active Scripts Citalopram (Celexa)40 Mg Tab40 Mg PO DAILY #30 TAB Ref 0 Prov:Adis Nunez MD 06/04/16 Reported Medications Norgestimate-Ethinyl Estradiol (Previfem)0.25-35 mg-Mcg Tab1 Tab PO DAILY #1 PACK Ref 0 09/01/16 Quetiapine 100 Mg [id number] Mg PO HS #60 TAB Ref 0 09/01/16 Carbamazepine ER 12 HR 300 Mg [id number] Mg PO Q12HR #60 CAP Ref 0 09/01/16 [ Control Pill] No Conflict Check1 Tab PO DAILY 05/23/16 Amlodipine 5 Mg Tab5 Mg PO DAILY #30 TAB Ref 0 05/23/16 Hydrochlorothiazide 25 Mg Tab25 Mg PO DAILY #30 TAB Ref 0 05/23/16 Discontinued Reported Medications Prednisolone Acetate Opth 1% (Pred Forte Opth 1%)1% Susp1 Drop LEFT EYE QID #1 BOTTLE Ref 0 05/23/16 Latanoprost Opth Drops 0.005% Drops1 Drop EACH EYE HS #2.5 ML Ref 0 Refrigerate until opened. 05/23/16 Risperidone (Risperdal)0.5 Mg Tab0.5 Mg PO TID #60 TAB Ref 0 05/23/16 Lamotrigine (Lamictal)100 Mg Tab50 Mg PO HS #30 TAB Ref 0 05/23/16 Lamotrigine (Lamictal)100 Mg [id number] Mg PO DAILY #30 TAB Ref 0 05/23/16 Discontinued Scripts Quetiapine 200 Mg [id number] Mg PO HS #30 TAB Ref 0 Prov:Adis Nunez MD 06/04/16 Carbamazepine 100 Mg [id number] Mg CHEW DIRECTED #90 TAB Ref 0 1 in a.m. 2 at bedtime Prov:Adis Nunez MD 06/04/16 Current Medications Medications (Trade) Dose Ordered Sig/Franky Route Start Time Stop Time Status Last Admin (Ativan) 1 mg Q6H PRN PO 09/02/16 04:15 (Ativan Inj) 1 mg Q6H PRN IM 09/02/16 04:15 (Benadryl) 50 mg HS PRN PO 09/02/16 04:15 (Benadryl Inj) 50 mg HS PRN IM 09/02/16 04:15 (Tylenol) 650 mg Q4H PRN PO 09/02/16 04:15 (Milk Of Magnesia Liq) 30 ml DAILY PRN PO 09/02/16 04:15 (Mag-Al Plus Susp Liq) 30 ml Q6H PRN PO 09/02/16 04:15 (Hydrodiuril) 25 mg DAILY PO 09/02/16 09:00 09/02/16 08:42 (Norvasc) 5 mg DAILY PO 09/02/16 09:00 09/02/16 08:42 (SEROquel) 100 mg HS PO 09/02/16 21:00 (SEROquel) 50 mg HS PO 09/02/16 21:00 (Pneumovax-23 Inj) 25 mcg ONCE ONCE IM 09/03/16 10:00 09/03/16 10:01 (Norvasc) 5 mg DAILY PO 09/02/16 15:00 UNV (CeleXA) 40 mg DAILY PO 09/02/16 15:00 UNV (Hydrodiuril) 25 mg DAILY PO 09/02/16 15:00 UNV (SEROquel) 150 mg HS PO 09/02/16 21:00 UNV Non-Formulary Medication 300 mg Q12HR PO 09/02/16 15:00 UNV Physical Exam Vital Signs Vital Signs Date Time Temp Pulse Resp B/P Pulse Ox O2 Delivery O2 Flow Rate FiO2 09/02/16 03:38 97.2 80 18 134/63 98 Mental Status Examination Appearance woman, disheveled, poor hygiene, poorly cooperative, childish, tearful Speech: Rapid, Hesitant Orientation: x3 Memory: Impaired (describe) Thought Process: Goal Directed, Other (concrete) Thought Content: Unremarkable Fund of Knowledge Limited, patient seems to be intellectually disabled Hallucination Type: Auditory Attention and Concentration: Abnormal Suicidal Ideation: No Previous Suicide Attempts: No Homicidal Ideation: No Previous Homicide Attempts: No Judgment: Poor Affect: Irritable Affect if Inappropriate: Labile Mood: Angry Motor Activity: Normal gait Assessment & Plan Problem List: (1) Schizoaffective disorder, depressive type Assessment & Plan: Patient was brought to the ER under Que[place] act due to aggressive behavior with family members. Patient has been agitated, moodily dysregulated, not giving a lot of information due to level of disorganization. She endorses auditory hallucinations that seems to be commanding style, but she is insightful and is stays that she doesn't act out her voices. Patient needs to continue psychiatric hospitalization for monitoring mood and behavior. More collateral information from family is needed in order to complete psychiatric assessment. We will restart her medications. ICD Code: F25.1 Assessment & Plan Estimated LOS: days Kj Farias MD September 02, 2016 15:06
[2016-09-02] MEDS ORDERED: PILL SPLITTER OTHER PRN (15:15)
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
[2016-09-02 17:17] LABS: INDIRECT BILIRUBIN 0.1 MG/DL (0.0-0.8); TOTAL BILIRUBIN ADULT 0.2 MG/DL (0.2-1.0)
[2016-09-02 20:30] VITALS: BP 149/78; PULSE 81; RESP 18; TEMP 97.6; O2SAT 100
[2016-09-02] MEDS ORDERED: QUEtiapine FUMARATE 100 MG TAB PO SCH (21:00)
[2016-09-02] MEDS: QUEtiapine FUMARATE 25 MG TAB PO SCH (21:08)
[2016-09-02] MEDS: carBAMazepine 200 MG TAB PO SCH (21:09)
[2016-09-02] MEDS: QUEtiapine FUMARATE 100 MG TAB PO SCH (21:10)
[2016-09-03 05:35] VITALS: BP_SYST 101; BP_SYST 110; BP_DIAS 64; BP_DIAS 67; PULSE 62; PULSE 74; RESP 16; TEMP 95.8; O2SAT 100; O2SAT 98
[2016-09-03 08:09] LABS: AUTOMATED NEUTROPHIL # 1.9 TH/MM3 (1.8-7.7); BASOPHIL % 0.5 % (0.0-2.0); EOSINOPHIL # 0.2 TH/MM3 (0-0.4); EOSINOPHIL % 3.5 % (0.0-4.0); HEMATOCRIT 37.8 % (35.0-46.0); HEMO FLAGS DIFF FINAL; LYMPH % 46.1 % (9.0-44.0); LYMPHOCYTE # 2.3 TH/MM3 (1.0-4.8); MEAN CELL VOLUME 90.1 FL (80.0-100.0); MEAN CORPUSCULAR HEMOGLOBIN 30.4 PG (27.0-34.0); MEAN CORPUSCULAR HGB CONC 33.7 % (32.0-36.0); MONO % 10.9 % (0.0-8.0); PLATELET COUNT 256 TH/MM3 (150-450); RETIC % 1.4 % (0.4-3.0); REVIEW FLAG FINAL
[2016-09-03 08:36] LABS: ANION GAP 7 MEQ/L (5-15); BICARBONATE 33.4 MEQ/L (21.0-32.0); BLOOD UREA NITROGEN 6 MG/DL (7-18); CHLORIDE 100 MEQ/L (98-107); GLOMERULAR FILTRATION RATE 94 ML/MIN (>89); LDH SERUM 130 U/L (84-246); POTASSIUM 3.2 MEQ/L (3.5-5.1); SODIUM (NA) 140 MEQ/L (136-145)
[2016-09-03 08:37] LABS: HDL CHOLESTEROL 106.4 MG/DL (40.0-60.0); LDL CHOLESTEROL 78 MG/DL (0-99)
[2016-09-03] MEDS: carBAMazepine 200 MG TAB PO SCH ×2 (08:59→20:46)
[2016-09-03] MEDS: amLODIPine BESYLATE 5 MG TAB PO SCH ×2 (08:59→09:00)
[2016-09-03] MEDS: HYDROCHLOROTHIAZIDE 25 MG TAB PO SCH (09:00)
[2016-09-03] MEDS: CITALOPRAM HYDROBROMIDE 40 MG TAB PO SCH (09:00)
[2016-09-03] MEDS ORDERED: PNEUMOCOCCAL POLYVALENT INJ 25 MCG/0.5 ML SYR IM ONE (10:00)
--- NOTE | 2016-09-03 12:37 | HHI.PYPN ---
Subjective Remarks Patient is complaining of auditory hallucinations that are critical of her. However she is calm and pleasant and cooperative today. She is eating lunch. This physician asked if she was willing to stay voluntarily and she indicated she was. Review of Systems Except as stated in HPI: all other systems reviewed are Neg Objective Alert: Yes [place]: Person, Place, Date, Situation Mood: Anxious Affect: Restricted Memory Intact: Immediate, Recent, Remote Hallucinations: Auditory Delusions: Yes Delusion Type: Paranoid Suicidal: Ideation Homicidal: Ideation Insight/Judgment Impaired Labs Test 09/03/16 07:16 White Blood Count 5.0 TH/MM3 Red Blood Count 4.20 MIL/MM3 Hemoglobin 12.7 GM/DL Hematocrit 37.8 % Mean Corpuscular Volume 90.1 FL Mean Corpuscular Hemoglobin 30.4 PG Mean Corpuscular Hemoglobin 33.7 % Concent Red Cell Distribution Width 14.0 % Platelet Count 256 TH/MM3 Mean Platelet Volume 8.1 FL Neutrophils (%) (Auto) 39.0 % Lymphocytes (%) (Auto) 46.1 % Monocytes (%) (Auto) 10.9 % Eosinophils (%) (Auto) 3.5 % Basophils (%) (Auto) 0.5 % Neutrophils # (Auto) 1.9 TH/MM3 Lymphocytes # (Auto) 2.3 TH/MM3 Monocytes # (Auto) 0.5 TH/MM3 Eosinophils # (Auto) 0.2 TH/MM3 Basophils # (Auto) 0.0 TH/MM3 CBC Comment DIFF FINAL Differential Comment Blood Smear Pathologist Review Reticulocyte Count 1.4 % Absolute Reticulocyte Count 58.9 MIL/L Sodium Level 140 MEQ/L Potassium Level 3.2 MEQ/L Chloride Level 100 MEQ/L Carbon Dioxide Level 33.4 MEQ/L Anion Gap 7 MEQ/L Blood Urea Nitrogen 6 MG/DL Creatinine 0.80 MG/DL Estimat Glomerular Filtration 94 ML/MIN Rate Random Glucose 76 MG/DL Calcium Level 9.0 MG/DL Lactate Dehydrogenase 130 U/L Triglycerides Level 91 MG/DL Cholesterol Level 203 MG/DL LDL Cholesterol 78 MG/DL HDL Cholesterol 106.4 MG/DL Cholesterol/HDL Ratio 1.90 RATIO Carbamazepine (Tegretol) Level 7.1 MCG/ML Vitals/IOs Vital Signs Date Time Temp Pulse Resp B/P Pulse Ox O2 Delivery O2 Flow Rate FiO2 09/03/16 05:35 95.8 74 16 110/67 100 Assessment & Plan Problem List: (1) Schizoaffective disorder, depressive type ICD Code: F25.1 Assessment & Plan Estimated LOS: 5 days patient needs to be stabilized on medications. This physician reviewed patient's medicines including antidepressants and antipsychotics. Will give them time to work. Justification for Cont. Inpt. Likely to decompensate at lower level of care. Nate Escobar MD September 03, 2016 12:37
--- NOTE | 2016-09-03 13:03 | PD.ONC.PN ---
Subjective Subjective Remarks Afebrile overnight. Patient resting comfortably in her room without complaint. Objective Data Date Time Temp Pulse Resp B/P Pulse Ox O2 Delivery O2 Flow Rate FiO2 09/03/16 05:35 95.8 74 16 110/67 100 09/02/16 20:30 97.6 81 18 149/78 100 Result Diagram: 09/03/16 0716 09/03/16 0716 Laboratory Results Laboratory Tests Test 09/03/16 07:16 White Blood Count 5.0 TH/MM3 Red Blood Count 4.20 MIL/MM3 Hemoglobin 12.7 GM/DL Hematocrit 37.8 % Mean Corpuscular Volume 90.1 FL Mean Corpuscular Hemoglobin 30.4 PG Mean Corpuscular Hemoglobin 33.7 % Concent Red Cell Distribution Width 14.0 % Platelet Count 256 TH/MM3 Mean Platelet Volume 8.1 FL Neutrophils (%) (Auto) 39.0 % Lymphocytes (%) (Auto) 46.1 % Monocytes (%) (Auto) 10.9 % Eosinophils (%) (Auto) 3.5 % Basophils (%) (Auto) 0.5 % Neutrophils # (Auto) 1.9 TH/MM3 Lymphocytes # (Auto) 2.3 TH/MM3 Monocytes # (Auto) 0.5 TH/MM3 Eosinophils # (Auto) 0.2 TH/MM3 Basophils # (Auto) 0.0 TH/MM3 CBC Comment DIFF FINAL Differential Comment Blood Smear Pathologist Review Reticulocyte Count 1.4 % Absolute Reticulocyte Count 58.9 MIL/L Sodium Level 140 MEQ/L Potassium Level 3.2 MEQ/L Chloride Level 100 MEQ/L Carbon Dioxide Level 33.4 MEQ/L Anion Gap 7 MEQ/L Blood Urea Nitrogen 6 MG/DL Creatinine 0.80 MG/DL Estimat Glomerular Filtration 94 ML/MIN Rate Random Glucose 76 MG/DL Calcium Level 9.0 MG/DL Lactate Dehydrogenase 130 U/L Triglycerides Level 91 MG/DL Cholesterol Level 203 MG/DL LDL Cholesterol 78 MG/DL HDL Cholesterol 106.4 MG/DL Cholesterol/HDL Ratio 1.90 RATIO Carbamazepine (Tegretol) Level 7.1 MCG/ML Administered Medications Medications (Trade) Dose Ordered Sig/Franky Route PRN Reason Start Time Stop Time Status Last Admin Dose Admin Lorazepam (Ativan) 1 mg Q6H PRN PO MODERATE TO SEVERE ANXIETY 09/02/16 04:15 09/02/16 16:08 Acetaminophen (Tylenol) 650 mg Q4H PRN PO Pain 1-5 or Temp >101F 09/02/16 04:15 09/03/16 08:58 Amlodipine Besylate (Norvasc) 5 mg DAILY PO 09/02/16 09:00 09/03/16 08:59 Quetiapine Fumarate (SEROquel) 100 mg HS PO 09/02/16 21:00 09/02/16 21:10 Quetiapine Fumarate (SEROquel) 50 mg HS PO 09/02/16 21:00 09/02/16 21:08 Amlodipine Besylate (Norvasc) 5 mg DAILY PO 09/02/16 15:00 09/03/16 09:00 Citalopram Hydrobromide (CeleXA) 40 mg DAILY PO 09/02/16 15:00 09/03/16 09:00 Hydrochlorothiazide (Hydrodiuril) 25 mg DAILY PO 09/02/16 15:00 09/03/16 09:00 Carbamazepine (TEGretol) 300 mg Q12HR PO 09/02/16 21:00 09/03/16 08:59 Objective Remarks GENERAL: Middle aged female, sitting up in bed in [facility]. SKIN: Warm and dry. HEAD: Normocephalic. EYES: No injection or drainage. NECK: Supple, trachea midline. CARDIOVASCULAR: Regular rate and rhythm RESPIRATORY: Breath sounds equal bilaterally. No accessory muscle use. GASTROINTESTINAL: Abdomen soft, non-tender, nondistended. MUSCULOSKELETAL: No cyanosis NEURO: awake and alert, normal speech. moving all extremities. Assessment/Plan Assessment 45y/o female with thrombocytopenia. history of schizoaffective disorder, impulse-control disorder, intellectual disability. currently [place] Acted. She is well-known to the psychiatry service. Plan 1. platelet count is within normal limits. yesterdays results was likely lab error. Hematology will sign off. Please call or reconsult if needed. Attending Statement Platelet count normal, suggest aberrant results that 28K. Continue meds as previous. Alondra Mcgee September 03, 2016 13:03 Ese Graham MD September 03, 2016 18:26
[2016-09-03 17:49] LABS: HEMOGLOBIN A1a 1.1 %; HEMOGLOBIN A1b 0.8 %; HEMOGLOBIN Ao 85.2 %; HEMOGLOBIN LA1C 1.8 %; HEMOGLOBIN P3 3.8 %
[2016-09-03] MEDS: QUEtiapine FUMARATE 100 MG TAB PO SCH (20:46)
[2016-09-03] MEDS: diphenhydrAMINE HCL 50 MG CAP - HS PRN PO (20:46)
[2016-09-03] MEDS: QUEtiapine FUMARATE 25 MG TAB PO SCH (20:47)
[2016-09-03 21:43] VITALS: BP 143/92; PULSE 83; RESP 18; TEMP 98.5; O2SAT 97
[2016-09-04 05:35] VITALS: BP 127/76; PULSE 75; RESP 18; TEMP 97.6; O2SAT 99
[2016-09-04] MEDS: amLODIPine BESYLATE 5 MG TAB PO SCH ×2 (09:00→09:13)
[2016-09-04] MEDS: carBAMazepine 200 MG TAB PO SCH ×2 (09:13→21:06)
[2016-09-04] MEDS: CITALOPRAM HYDROBROMIDE 40 MG TAB PO SCH (09:13)
[2016-09-04] MEDS: HYDROCHLOROTHIAZIDE 25 MG TAB PO SCH (09:14)
--- NOTE | 2016-09-04 15:36 | HHI.PYPN ---
Subjective Remarks Exhibits thought blocking, confusion, and unrealistic plans. She is obviously unable to care for herself. Her insight and judgment are impaired. She is willing however to accept help and understands about. Review of Systems Except as stated in HPI: all other systems reviewed are Neg Objective Alert: Yes [place]: Person, Place, Date, Situation Mood: Anxious Affect: Restricted Memory Intact: Immediate, Recent, Remote Hallucinations: Auditory Delusions: Yes Delusion Type: Paranoid Suicidal: Ideation Homicidal: Ideation Insight/Judgment Impaired Vitals/IOs Vital Signs Date Time Temp Pulse Resp B/P Pulse Ox O2 Delivery O2 Flow Rate FiO2 09/04/16 05:35 97.6 75 18 127/76 99 Assessment & Plan Problem List: (1) Schizoaffective disorder, depressive type ICD Code: F25.1 Assessment & Plan Estimated LOS: 5 days patient not responding to antipsychotic medication yet. We will continue to evaluate and titrate medicine as necessary. Justification for Cont. Inpt. Psychotic and unable to care for self. Nate Escobar MD September 04, 2016 15:36
[2016-09-04 17:57] VITALS: BP 129/79; PULSE 88; RESP 17; TEMP 98.8; O2SAT 100
[2016-09-04] MEDS: diphenhydrAMINE HCL 50 MG CAP - HS PRN PO (21:06)
[2016-09-04] MEDS: QUEtiapine FUMARATE 200 MG TAB PO SCH (21:06)
[2016-09-05 05:03] VITALS: BP 109/57; PULSE 66; RESP 18; TEMP 98.5; O2SAT 99
[2016-09-05] MEDS: HYDROCHLOROTHIAZIDE 25 MG TAB PO SCH (08:51)
[2016-09-05] MEDS: amLODIPine BESYLATE 5 MG TAB PO SCH (08:51)
[2016-09-05] MEDS: carBAMazepine 200 MG TAB PO SCH ×2 (08:52→21:35)
[2016-09-05] MEDS: QUEtiapine FUMARATE 100 MG TAB PO SCH (08:52)
--- NOTE | 2016-09-05 12:50 | HHI.PYPN ---
Subjective Remarks Continues to be depressed and paranoid. Review of Systems Except as stated in HPI: all other systems reviewed are Neg Objective Alert: Yes [place]: Person, Place, Date, Situation Mood: Anxious Affect: Restricted Memory Intact: Immediate, Recent, Remote Hallucinations: Auditory Delusions: Yes Delusion Type: Paranoid Suicidal: Ideation Homicidal: Ideation Insight/Judgment Impaired Vitals/IOs Vital Signs Date Time Temp Pulse Resp B/P Pulse Ox O2 Delivery O2 Flow Rate FiO2 09/05/16 05:03 98.5 66 18 109/57 99 Intake and Output 09/04/16 09/04/16 09/05/16 08:00 16:00 00:00 Intake Total 360 ml Balance 360 ml Assessment & Plan Problem List: (1) Schizoaffective disorder, depressive type ICD Code: F25.1 Assessment & Plan Estimated LOS: 2 days patient needs more time on current medicines to stabilize. Justification for Cont. Inpt. Likely to decompensate a lower level of care. Nate Escobar MD September 05, 2016 12:50
[2016-09-05 18:08] VITALS: BP 128/82; PULSE 78; RESP 18; TEMP 98.2; O2SAT 100
[2016-09-05] MEDS: QUEtiapine FUMARATE 200 MG TAB PO SCH (21:35)
[2016-09-06 05:44] VITALS: BP 115/66; PULSE 71; RESP 16; TEMP 97.7; O2SAT 98
[2016-09-06] MEDS: amLODIPine BESYLATE 5 MG TAB PO SCH (08:28)
[2016-09-06] MEDS: HYDROCHLOROTHIAZIDE 25 MG TAB PO SCH (08:28)
[2016-09-06] MEDS: QUEtiapine FUMARATE 100 MG TAB PO SCH (08:28)
[2016-09-06] MEDS: carBAMazepine 200 MG TAB PO SCH ×2 (08:29→21:03)
[2016-09-06 18:00] VITALS: BP 144/89; PULSE 89; RESP 18; TEMP 98.2; O2SAT 100
[2016-09-06] MEDS: diphenhydrAMINE HCL 50 MG CAP - HS PRN PO (21:02)
[2016-09-06] MEDS: QUEtiapine FUMARATE 200 MG TAB PO SCH (21:03)
[2016-09-07 06:20] VITALS: BP 114/61; PULSE 77; RESP 18; TEMP 97; O2SAT 100
[2016-09-07] MEDS: amLODIPine BESYLATE 5 MG TAB PO SCH (08:36)
[2016-09-07] MEDS: HYDROCHLOROTHIAZIDE 25 MG TAB PO SCH (08:36)
[2016-09-07] MEDS: QUEtiapine FUMARATE 100 MG TAB PO SCH (08:36)
[2016-09-07] MEDS: carBAMazepine 200 MG TAB PO SCH (08:37)
--- NOTE | 2016-09-07 09:47 | HHI.PYPN ---
Subjective Remarks This is the psychiatric progress note for September 06, 2016. Patient continues to be very withdrawn, sad, paranoid and complaining of auditory hallucinations. Medications have not worked adequately thus far. This physician will discuss titrating the antipsychotic medicines upward or changing to different antipsychotics. Review of Systems ROS Limitations: Psychotic Except as stated in HPI: all other systems reviewed are Neg Objective Alert: Yes [place]: Person, Place, Date, Situation Mood: Anxious Affect: Restricted Memory Intact: Immediate, Recent, Remote Hallucinations: Auditory Delusions: Yes Delusion Type: Paranoid Suicidal: Ideation Homicidal: Ideation Insight/Judgment Significantly impaired. Vitals/IOs Vital Signs Date Time Temp Pulse Resp B/P Pulse Ox O2 Delivery O2 Flow Rate FiO2 09/07/16 06:20 97.0 77 18 114/61 100 Intake and Output 09/06/16 09/06/16 09/07/16 08:00 16:00 00:00 Intake Total 360 ml Balance 360 ml Assessment & Plan Problem List: (1) Schizoaffective disorder, depressive type ICD Code: F25.1 Assessment & Plan Estimated LOS: 5 days patient needs more time on antipsychotic medicine to respond. Justification for Cont. Inpt. Patient likely to decompensate at lower level of care. Nate Escobar MD September 07, 2016 09:46
--- NOTE | 2016-09-07 13:26 | HHI.DS ---
Psychiatry Discharge Summary Inpatient Psychiatric care?: Yes Advance Directive: No Reason Not Provided: Not interested Mental Health AdvanceDirective: No Health Care Proxy: No Admission Admission Date September 02, 2016 at 02:45 Admission Diagnosis: (1) schizoaffective disorder depressed Brief History The patient is a 45 year-old woman, well known by this service , with history schizoaffective disorder, intellectual disability, impulse control disorder, multiple psychiatric hospitalizations, last hospitalization was here at [facility] in May 2016, document patient was reviewed, she is on Celexa 20 mg, quetiapine 150 mg's, Amoxapine 200 mg, medical history of hypertension, who presents to the emergency department under Quezada act for psychiatric evaluation due to aggressive behavior with her family. On psychiatric evaluation today patient is at the beginning, cooperative, but after a couple of minutes becomes very labile, crying inconsolably, stating that her mother doesn't want to forgive her, childish-like, difficult to redirect. She says that she has been hearing voices telling her to do bad things "but I want to do bad things, I want to follow might voices". She denies suicidal or homicidal ideation, she denies visual and auditory hallucinations. He is oriented 3, no delusional, no paranoid, however very concrete and perseverant. Tobacco Use In Past 30 Days: No Tobacco Past 30 Days Alcohol Use: Never Hospital Course Patient was compliant with medications and staff throughout her hospital stay. No untoward side effects from the medications. She participated in individual and group therapies. No procedures were performed. At the time of discharge she was felt to be baseline. Results Blood Pressure 114 / 61 Vital Signs Date Time Temp Pulse Resp B/P Pulse Ox O2 Delivery O2 Flow Rate FiO2 09/07/16 06:20 97.0 77 18 114/61 100 Laboratory Results Test 09/03/16 07:16 Hemoglobin A1c 5.7 % (4.3-6.0) Triglycerides Level 91 MG/DL (42-150) Cholesterol Level 203 MG/DL (120-200) LDL Cholesterol 78 MG/DL (0-99) HDL Cholesterol 106.4 MG/DL (40.0-60.0) Summary of Procedures None Pending results at discharge: No Medications # of Antipsychotic meds at D/C: 1 Appropriate >1 Antipsych meds?: 1 Approp Antipsych med options 1 - Minimum of three failed multiple trials of monotherapy. 2 - Documented plan to taper to monotherapy due to previous use of multiple meds OR cross-taper in progress at D/C. 3 - Documentation of augmentation of Clozapine. 4 - Justification other than those listed in allowable values 1-3, document here : Discharge Discharge Date: September 07, 2016 Discharge Diagnosis: (1) Schizoaffective disorder, depressive type ICD Code: F25.1 Mental Status Exam at Disch No suicidal or homicidal ideation, plan or intent seen. No psychotic symptoms were evident at the time of discharge. Patient was felt to be baseline. Pt Condition on Discharge: Stable Discharge Disposition: Discharge Home Discharge Instructions Diet Instructions: As Tolerated, No Restrictions Activities you can perform: Regular-No Restrictions Scheduled Appointment: JESS Appointment Date: Sep 24, 2016 Appointment Time: 2:00pm Discharge Time <= 30 minutes Discharge/Advance Care Plan Health Problems: (1) Schizoaffective disorder, depressive type Goals to promote your health * To prevent worsening of your condition and complications * To maintain your health at the optimal level Directions to meet your goals Take your medications as prescribed Follow your dietary instruction Follow activity as directed Keep your appointments as scheduled Take your immunizations and boosters as scheduled If your symptoms worsen call your PCP, if no PCP go to Urgent Care Center or Emergency Room For 05/11 questions related to your inpatient stay or results of tests pending at discharge, please contact Dr. Nate Escobar at Smoking is Dangerous to Your Health. Avoid second hand smoking Nate Escobar MD September 07, 2016 13:26
[2016-09-07] MEDS ORDERED: QUET1TAB8 PO (13:28)
[2016-09-07] MEDS ORDERED: QUET1TAB9 PO (13:28)
[2016-09-07] MEDS ORDERED: CARB200T PO (13:28)
[2016-09-07] MEDS ORDERED: AMLO5 PO (13:28)
[2016-09-08 23:50] LABS: BETA2 GLYCOPROTEIN I AB IGA LESS THAN 9.0 SAU (< OR = 20)
== END 2016-09-07 18:14 | disposition home or self-care (01) | DRG 885 ==
LOC: NEPJ 22:01 → NEDA 09-02 02:45 → H260 09-02 03:38
PROVIDERS: ADMIT Psychiatry & Neurology Psychiatry; ATTEND Psychiatry & Neurology Psychiatry
DX: F25.1 Schizoaffective disorder, depressive type (principal); F79 Unspecified intellectual disabilities; I10 Essential (primary) hypertension; F63.9 Impulse disorder, unspecified
CPT/HCPCS: 80048; 80061; 80076; 80156; 80307; 81001; 83036; 83615; 85025; 85044; 85060; 85613; 85730; 86147; 99284; Q0163

== ENCOUNTER 2017-06-01 16:01 | Emergency (ER) | payer MEDICARE, OTHER ==
[~2017-06-01 16:01] MED LIST changes: +AMLO5 PO; -CARB100C CHEW; +CARB200T PO; +CARB300C7 PO; -LAMO100 PO; -LATA0.002 EACH EYE; -PRED1SUS LEFT EYE; +PREVTAB PO; +QUET1TAB8 PO; -RISP0.5T20 PO
[2017-06-01 16:14] VITALS: BP 155/84; PULSE 98; RESP 16; TEMP 98.6; O2SAT 100
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
[2017-06-01 18:06] LABS: AUTOMATED NEUTROPHIL # 4.8 TH/MM3 (1.8-7.7); BASOPHIL % 0.4 % (0.0-2.0); EOSINOPHIL # 0.2 TH/MM3 (0-0.4); EOSINOPHIL % 2.3 % (0.0-4.0); HEMATOCRIT 41.1 % (35.0-46.0); HEMOGLOBIN 13.9 GM/DL (11.6-15.3); LYMPH % 24.3 % (9.0-44.0); LYMPHOCYTE # 1.8 TH/MM3 (1.0-4.8); MEAN CELL VOLUME 92.1 FL (80.0-100.0); MEAN CORPUSCULAR HEMOGLOBIN 31.2 PG (27.0-34.0); MEAN CORPUSCULAR HGB CONC 33.9 % (32.0-36.0); MEAN PLATELET VOLUME 8.2 FL (7.0-11.0); MONO % 8.3 % (0.0-8.0); MONOCYTE # 0.6 TH/MM3 (0-0.9); NEUT % 64.7 % (16.0-70.0); PLATELET COUNT 270 TH/MM3 (150-450); RED BLOOD COUNT 4.46 MIL/MM3 (4.00-5.30); RED CELL DISTRIBUTION WIDTH 14.5 % (11.6-17.2); WHITE BLOOD COUNT 7.4 TH/MM3 (4.0-11.0)
[2017-06-01 18:26] LABS: ALBUMIN 3.6 GM/DL (3.4-5.0); AST (GOT) 18 U/L (15-37); BICARBONATE 25.7 MEQ/L (21.0-32.0); BLOOD UREA NITROGEN 7 MG/DL (7-18); CALCIUM 9.1 MG/DL (8.5-10.1); CHLORIDE 109 MEQ/L (98-107); CREATININE 0.79 MG/DL (0.50-1.00); GLOMERULAR FILTRATION RATE 95 ML/MIN (>89); GLUCOSE,RANDOM 76 MG/DL (74-106); SODIUM (NA) 141 MEQ/L (136-145)
[2017-06-01 18:37] LABS: ALKALINE PHOSPHATASE 104 U/L (45-117); ALT (GPT) 17 U/L (10-53); TOTAL BILIRUBIN ADULT 0.2 MG/DL (0.2-1.0); TOTAL PROTEIN 8.6 GM/DL (6.4-8.2)
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
[2017-06-01 19:08] VITALS: BP 142/82; PULSE 86; RESP 18; O2SAT 98
[2017-06-01 20:08] VITALS: BP 146/84; PULSE 86; RESP 18; TEMP 98.7; O2SAT 100
[2017-06-02 05:36] VITALS: BP 114/68; PULSE 77; RESP 16; TEMP 98.5; O2SAT 100
--- NOTE | 2017-06-02 16:45 | PD ---
Physical Exam Date Seen by Provider: Jun 02, 2017 Time Seen by Provider: 16:44 Narrative 46-year-old female previously medically cleared for psychiatric evaluation has been seen by psychiatric services and deemed safe for discharge. Patient remains medically stable at this time. Follow-up will be as per psychiatric note Data Data Last Documented VS Vital Signs Date Time Temp Pulse Resp B/P (MAP) Pulse Ox O2 Delivery O2 Flow Rate FiO2 06/02/17 16:40 06/02/17 05:36 98.5 77 16 100 Room Air Orders Orders Ct Facial Bones W/O Iv Cont (06/01/17 17:25) Complete Blood Count With Diff (06/01/17 17:25) Comprehensive Metabolic Panel (06/01/17 17:25) Thyroid Stimulating Hormone (06/01/17 17:25) Psych Screen (06/01/17 17:25) Drug Screen, Random Urine (06/01/17 17:25) Diet Regular Basic (06/02/17 Breakfast) Diet Regular Basic (06/02/17 Lunch) Labs Laboratory Tests Test 06/01/17 17:35 White Blood Count 7.4 TH/MM3 Red Blood Count 4.46 MIL/MM3 Hemoglobin 13.9 GM/DL Hematocrit 41.1 % Mean Corpuscular Volume 92.1 FL Mean Corpuscular Hemoglobin 31.2 PG Mean Corpuscular Hemoglobin Concent 33.9 % Red Cell Distribution Width 14.5 % Platelet Count 270 TH/MM3 Mean Platelet Volume 8.2 FL Neutrophils (%) (Auto) 64.7 % Lymphocytes (%) (Auto) 24.3 % Monocytes (%) (Auto) 8.3 % Eosinophils (%) (Auto) 2.3 % Basophils (%) (Auto) 0.4 % Neutrophils # (Auto) 4.8 TH/MM3 Lymphocytes # (Auto) 1.8 TH/MM3 Monocytes # (Auto) 0.6 TH/MM3 Eosinophils # (Auto) 0.2 TH/MM3 Basophils # (Auto) 0.0 TH/MM3 CBC Comment DIFF FINAL Differential Comment Blood Urea Nitrogen 7 MG/DL Creatinine 0.79 MG/DL Random Glucose 76 MG/DL Total Protein 8.6 GM/DL Albumin 3.6 GM/DL Calcium Level 9.1 MG/DL Alkaline Phosphatase 104 U/L Aspartate Amino Transf (AST/SGOT) 18 U/L Alanine Aminotransferase (ALT/SGPT) 17 U/L Total Bilirubin 0.2 MG/DL Sodium Level 141 MEQ/L Potassium Level 3.4 MEQ/L Chloride Level 109 MEQ/L Carbon Dioxide Level 25.7 MEQ/L Anion Gap 6 MEQ/L Estimat Glomerular Filtration Rate 95 ML/MIN Thyroid Stimulating Hormone 3rd Gen 0.500 uIU/ML Urine Opiates Screen NEG Urine Barbiturates Screen NEG Urine Amphetamines Screen NEG Urine Benzodiazepines Screen NEG Urine Cocaine Screen NEG Urine Cannabinoids Screen NEG MDM Medical Record Reviewed: Yes Supervised Visit with FRANCISCA: Yes Narrative Course 46-year-old female previously medically cleared for psychiatric evaluation has been seen by psychiatric services and deemed safe for discharge. Patient remains medically stable at this time. Follow-up will be as per psychiatric note Disposition: DISCHARGE HOME Condition: Stable Mook Baum Jun 02, 2017 16:45
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
[2017-06-02] MEDS ORDERED: VIST25CA PO (16:56)
== END 2017-06-02 17:48 | disposition home or self-care (01) ==
LOC: NEPD 16:01 → NEPJ 06-02 17:48
DX: F25.1 Schizoaffective disorder, depressive type (principal); F63.89 Other impulse disorders; F20.9 Schizophrenia, unspecified; F31.9 Bipolar disorder, unspecified; F41.9 Anxiety disorder, unspecified; F79 Unspecified intellectual disabilities; I10 Essential (primary) hypertension; Z79.899 Other long term (current) drug therapy; Z79.3 Long term (current) use of hormonal contraceptives
CPT/HCPCS: 70486; 80053; 80307; 84443; 85025; 99284